=== PATIENT | female | born 1950 | race Hispanic/Latino ===

== ENCOUNTER 2017-04-25 10:15 | Outpatient (CLI) | payer MEDICARE, OTHER ==
--- NOTE | 2017-04-25 16:10 | PET ---
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 Exam requested for restaging. No chemo or radiatio n therapy has been administered. TECHNIQUE: PET scanning with CT attenuation correction was performed from the base of the brain through the pro ximal thighs following the intravenous administration of 10.4 mCi F18-FDG in the right antecubital f joshua. Imaging was performed after an uptake interval of 58 minutes. COMPARISON: PET CT dated 12/21/16. FINDINGS: There is continued hypermetabolic activity in the left upper lobe lung nodule with a current SUV of 11.2 (previously 9.1). No new hypermetabolic pulmonary nodules are seen in either lung. No evie hypermetabolism is noted in the neck, mediastinum, hilar regions, axilla, abdomen, pelvis, or inguinal regions. No hypermetabolic liver, adrenal, or skeletal lesions are seen. There is mild uptake in the right ribs/chest wall likely due to postop change of thoracostomy. There is physiologic activity in the GI and tracts, and the visualized portions of the brain. The CT scan used for attenuation correction demonstrates no evidence of pleural effusions or ascites . IMPRESSION: Solitary left upper lobe lung malignancy/metastatic disease. POS: [facility]
== END 2017-04-25 10:16 | disposition home or self-care (01) ==
LOC: PET 10:15
PROVIDERS: ATTEND Internal Medicine Hematology & Oncology
DX: C34.90 Malignant neoplasm of unspecified part of unspecified bronchus or lung (principal); C78.02 Secondary malignant neoplasm of left lung
CPT/HCPCS: 78815; A9552

== ENCOUNTER 2017-09-20 12:34 | Outpatient (CLI) | payer MEDICARE, OTHER ==
--- NOTE | 2017-09-20 14:12 | RAD ---
PA AND LATERAL CHEST: History: malignant neoplasm of left upper bronchus. FINDINGS: Comparison made with exam of 08-29-17. Changes of median sternotomy are again seen. The heart size is normal. The lungs are expanded with st able chronic changes. No lobar consolidation, pneumothoraces or pleural effusions are seen. Density i n the right upper lateral chest is again noted. There are degenerative changes in the spine. IMPRESSION: Stable exam. POS: [facility]
== END 2017-09-20 12:35 | disposition home or self-care (01) ==
LOC: RAD 12:34
PROVIDERS: ATTEND Thoracic Surgery (Cardiothoracic Vascular Surgery)
DX: C34.11 Malignant neoplasm of upper lobe, right bronchus or lung (principal); C34.12 Malignant neoplasm of upper lobe, left bronchus or lung
CPT/HCPCS: 71046

== ENCOUNTER 2017-10-09 07:22 | Outpatient (CLI) | payer MEDICARE, OTHER ==
--- NOTE | 2017-10-09 09:28 | CT ---
CT CHEST WITH IV CONTRAST: Date: 10/09/17 HISTORY: Lung cancer. Restaging. COMPARISON: 09/26/16 and 04/25/17. FINDINGS: Postoperative changes of the right hilum are now apparent with presumed partial resection of the righ t upper lobe. The previously dominant right upper lobe mass is no longer present. At the left lung ap ex, a new 0.7 cm nodule is localized to the superior segment lower lobe, which is markedly displaced superiorly due to prior surgery. The lobular nodule at the lateral aspect of the left upper lobe apex abuts the lateral pleura. It is now 1.2 x 1.0 cm diameter, where it was previously 1.3 x 1.3 cm. Lungs are otherwise hyperinflated with parenchymal scarring. There is calcification in the arterial s tructures. No enlarged lymph nodes. Calcification within the arterial structures. IMPRESSION: 1. Surgical resection right upper lobe mass. 2. New 7 mm nodule right apex (superior segment right lower lobe). 3. Stable left upper lobe mass. 4. Atherosclerosis. POS: [facility]
[2017-10-09] MEDS ORDERED: Iopamidol 370 76% 100 ML VIAL ONE (15:38)
== END 2017-10-09 07:23 | disposition home or self-care (01) ==
LOC: CT 07:22
PROVIDERS: ATTEND Radiology Radiation Oncology
DX: C34.12 Malignant neoplasm of upper lobe, left bronchus or lung (principal); C34.11 Malignant neoplasm of upper lobe, right bronchus or lung; I70.90 Unspecified atherosclerosis
CPT/HCPCS: 71260; 82565

== ENCOUNTER 2017-12-27 09:32 | Outpatient (CLI) | payer MEDICARE, OTHER ==
--- NOTE | 2017-12-28 13:32 | RAD ---
MODIFIED BARIUM SWALLOW BY THE SPEECH PATHOLOGIST: HISTORY: Dysphagia, oropharyngeal phase, R13.12. Gastroesophageal reflux disease without esophagitis, K21.9. COMPARISON: None. FINDINGS: Scan was performed by the speech pathologist. Radiologist is not present. Multiple consistencies of contrast were given by the speech pathologist. IMPRESSION: Fluoroscopy for the speech pathologist. Please see their report for details. FLUORO TIME: 21 seconds. POS: [facility]
== END 2017-12-27 09:33 | disposition home or self-care (01) ==
PROVIDERS: ATTEND Internal Medicine Gastroenterology
DX: R13.12 Dysphagia, oropharyngeal phase (principal); K21.9 Gastro-esophageal reflux disease without esophagitis
CPT/HCPCS: 74230; G8996-GN-CI; G8997-GN-CI; G8998-GN-CI

== ENCOUNTER 2018-01-17 07:37 | Outpatient (CLI) | payer MEDICARE, OTHER ==
--- NOTE | 2018-01-17 09:27 | CT ---
CONTRAST ENHANCED CT CHEST: History: Patient with history of lung cancer. C34.12, C34.11. Technique: Contrast enhanced CT of the chest is performed. Date: 01-17-18 Comparison: 10-09-17 FINDINGS: CT images demonstrate a spiculated lesion in the left upper lobe, image 12, unchanged in size or shap e since the previous exam. A second lesion is seen in the superior segment of the right lower lobe. T his is seen on image 9. The patient has had a previous upper lobectomy. Small nodular density also seen on image 35 in the right lower lobe. Additional tiny lung parenchymal nodular density also seen on image 39 in the left lower lobe. This left lower lobe lesion also is pr esent on the previous exam. No evidence of mediastinal, hilar, or axillary lymphadenopathy is seen. There is a hiatal hernia present. IMPRESSION: Three stable right lung lesions. There does appear to be a newly developed small approximately 3 mm n odular density on image 35 in the right lower lobe. This lesion is too small to characterize. POS: [facility]
== END 2018-01-17 07:38 | disposition home or self-care (01) ==
LOC: CT 07:37
PROVIDERS: ATTEND Radiology Radiation Oncology
DX: C34.12 Malignant neoplasm of upper lobe, left bronchus or lung (principal); C34.11 Malignant neoplasm of upper lobe, right bronchus or lung; Z90.2 Acquired absence of lung [part of]; Z92.3 Personal history of irradiation; R91.1 Solitary pulmonary nodule; J98.4 Other disorders of lung
CPT/HCPCS: 71260; 82565

== ENCOUNTER 2018-01-20 20:33 | Observation (INO) | payer MEDICARE, OTHER ==
[2018-01-20 21:39] LABS: CKMB 1.6 ng/mL (0-6.6); Troponin I Less than 0.010 ng/mL (< 0.028)
[2018-01-20] MEDS ORDERED: traMADol HCl 50 MG TAB PO PRN (22:39)
[2018-01-20] MEDS ORDERED: PROVENTIL INHALER 6.7 G (200 INHALATIONS) INH PRN (22:39)
[2018-01-20] MEDS ORDERED: Nitroglycerin 0.4 MG TAB (25 Tab Bottle) PO PRN (22:40)
[2018-01-21] MEDS: Ipratropium Bromide 2.5 ml Neb NEB SCH ×4 (00:13→17:58)
[2018-01-21 00:41] LABS: Troponin I Less than 0.010 ng/mL (< 0.028)
[2018-01-21 00:47] VITALS: BMI 24.2
[2018-01-21] MEDS ORDERED: cefTRIAXone\\ROCEPHIN 1 GM in Sodium Chloride 0.9% 100 ML IVPB SCH (01:00)
--- NOTE | 2018-01-21 02:30 | HP ---
PRIMARY CARE PHYSICIAN: Felipe Stanton D.O. CODE STATUS: FULL CODE. PICK UP TRUCK DRIVER: Dick Terry M.D. TIME OF EVALUATION: 10:30 PM CHIEF COMPLAINT: Chest pain. HISTORY OF PRESENT ILLNESS: This is a 67-year-old female patient with past medical history of coronary artery disease status post CABG x3 vessels. The patient came to the hospital after having a retrosternal, chest pain, no specific radiation, that was severe, was on and off, initially started yesterday , no clear triggers, no alleviating factors, REVIEW OF SYSTEMS: Constitutional: No fever, no chills, generalized weakness. Respiratory: No cough, no sputum production, no shortness of breath. Cardiovascular: Chest pain as mentioned in the HPI, no palpitations, no shortness of breath. Gastrointestinal: No nausea, no vomiting, no diarrhea, no abdominal pain. PATTERN ROOM ATTENDANT: No dizziness, headache or feeling lightheaded. Genitourinary: No burning on urination. Extremities: No leg swelling. All other systems reviewed were negative except for the findings mentioned above. PAST MEDICAL HISTORY: Lung cancer, coronary artery disease, hyperlipidemia, hypertension, pulmonary disease, COPD. PAST SURGICAL HISTORY: CABG x3, hysterectomy, right upper lung lobectomy. PSYCHIATRIC HISTORY: No previous psychiatric history. SOCIAL HISTORY: No alcohol, no drugs. Former tobacco user, quit smoking more than 10 years ago. FAMILY HISTORY: Reported as negative. ALLERGIES: No known drug allergies. REPORTED MEDICATIONS: Please see her medication reconciliation for details. PHYSICAL EXAMINATION: VITAL SIGNS: On presentation, blood pressure 147/79 with heart rate 61, respiratory rate was 20, temperature 98.4, pain 0/10, O2 saturation 97 on room air. GENERAL: The patient has general appearance, alert, oriented, not in any acute distress. HEENT: Eyes, normal conjunctivae. Moist oral mucosa, anicteric. NECK: No JVD. RESPIRATORY: Bilateral air entry. No rales, no wheezing. Symmetrical expansion. CARDIOVASCULAR: Normal rate and regular rhythm, no murmurs, no gallop, no edema. ABDOMEN: Soft, normal bowel sounds. MUSCULOSKELETAL: Baseline range of motion and strength. No tenderness. SKIN: Warm and intact. No pallor, no rash, no redness. NEUROLOGIC: Baseline sensorium. No evidence of any new focal weakness. Baseline speech. Cranial nerves seem to be intact. PSYCHIATRIC: The patient is in good mood. No anxiety, oriented, optimal judgment. LABORATORY DATA: Reviewed. The patient has D-dimer negative, troponin negative. Hematology: White count 9.4, hemoglobin 14, MCV 83, platelet count 174. Chemistry was reviewed, sodium 142, potassium 3.9, chloride 107, carbon dioxide 25, anion gap 14, BUN 12, creatinine 0.7, GFR 34, glucose 106. LFTs were normal. Beta natriuretic peptide 115. UA was done, it was positive with leukocyte 7-10. IMAGING: Chest x-ray was reviewed, did not show any acute evident pathology, will need to follow Cardiology official report, this was reviewed by myself. ASSESSMENT AND PLAN: 1. Chest pain, rule out acute coronary syndrome. The patient has a history of coronary artery bypass graft. EKG as discussed with the performing physician from ER was negative with no acute findings for acute ischemic events. The patient follows with Dr. Harrison Castaneda, she has requested to see Dr. Terry prior to any other testing at this point. We will trend troponins, we will place her on monitor. We will treat accordingly. 2. Urinary tract infection. The patient has positive white count, we will give antibiotics, we will send cultures. 3. History of hypertension, it is controlled, reconciled home medications, adjustment treatment as needed. 4. History of chronic obstructive pulmonary disease, this is chronic, stable, reconciled home medications. 5. Deep venous thrombosis prophylaxis. [facility]
[2018-01-21 03:29] LABS: Troponin I Less than 0.010 ng/mL (< 0.028)
[2018-01-21] MEDS ORDERED: ALPRAZolam 0.25 MG TAB PO SCH (09:00)
[2018-01-21] MEDS ORDERED: Lisinopril 10 MG TAB PO SCH (09:00)
[2018-01-21] MEDS ORDERED: SYMBICORT INH SCH (09:00)
[2018-01-21] MEDS ORDERED: Spiriva 18 MCG CAP (Box of 5 Caps) INH SCH (09:00)
[2018-01-21] MEDS ORDERED: Aspirin 325 MG TAB PO SCH (09:00)
[2018-01-21] MEDS: Mometasone/Formoterol 120 PUFF INHALER INH SCH ×2 (12:00→18:00)
--- NOTE | 2018-01-21 13:00 | CON ---
DATE OF CONSULTATION: 01/21/2018 REASON FOR CONSULTATION: Chest pain. PRIMARY FLUX CORE WELDER: Dr. Dick Terry. HISTORY OF PRESENT ILLNESS: Ms. Flores is a very pleasant 67-year-old woman with a previous history of CAD status post bypass surgery in 2012 who recently presented with chest pain. She states she has had multiple episodes over the last several days. They occur at rest. No nausea, vomiting or other associated symptoms present. It is not worse with deep breath or movement. They spontaneously reso lve. Her CK and troponins have been negative. Her EKG has also been negative. She is currently nicole st pain free and has been over the last 24 hours. PAST MEDICAL HISTORY: 1. Coronary angiography in 2012 with the following: LAD 60% stenosis, circumflex artery 80% stenosi s, right coronary artery 80% stenosis. 2. CABG x3. 3. Lung cancer. 4. COPD. 5. Pulmonary disease. 6. Hyperlipidemia. PAST SURGICAL HISTORY: Hysterectomy, right upper lobectomy. SOCIAL HISTORY: No current tobacco or alcohol use. Quit all tobacco products in 2011. CURRENT MEDICATIONS: None. FAMILY HISTORY: Negative for CAD. HOME MEDICATIONS: Include Spiriva, Zestril, Advair, Dexilant, Lipitor, aspirin and ProAir. REVIEW OF SYSTEMS: Ten-point review of systems is reviewed and as above, otherwise negative. PHYSICAL EXAMINATION: GENERAL: The patient is a pleasant female who is in no acute distress. The patient appears her stat ed age. VITAL SIGNS: Blood pressure 135/62, pulse 71, temperature 98.4. NEUROLOGIC: The patient is alert and oriented times 3 with no focal neurologic deficits. HEENT: Sclerae without icterus. Mouth has moist mucous membranes with normal pallor. NECK: No JVD. Carotid upstroke brisk. No bruits bilaterally. LUNGS: Clear to auscultation with unlabored respirations. BACK: No scoliosis or kyphosis. CARDIAC: Regular rate and rhythm with normal S1 and S2. No S3 or S4 noted. No significant rubs, mu rmurs, thrills, or gallops noted throughout the precordium. PMI is not displaced. There is no curly ternal heave. ABDOMEN: Soft, nontender, nondistended. No peritoneal signs present. No hepatosplenomegaly. No ab normal striae. EXTREMITIES: 2+ femoral and 2+ dorsalis pedis pulses. No cyanosis, clubbing, or edema. SKIN: No gross abnormalities. PERTINENT LABS: CK and troponin negative. D-dimer negative. IMPRESSION: 1. Chest pain. 2. Coronary artery disease. 3. Status post bypass surgery. RECOMMENDATIONS: Ms. Flores's symptoms could certainly suggest angina. The pain has occurred at res t. Her CK and troponin now are negative. Her EKG is nonspecific and is unchanged. Given the above, would recommend a noninvasive stress study to assess for any areas of ischemia. Further recommendat ions will be dictated by findings as above.
[2018-01-21] MEDS ORDERED: Regadenoson 0.4 MG/5 ML SYRINGE ONE (13:27)
[2018-01-21 15:21] VITALS: BP 152/70; TEMP 98.3
--- NOTE | 2018-01-21 16:32 | NM ---
NUCLEAR MEDICINE CARDIAC PERFUSION EXAMINATION WITH EJECTION FRACTION: HISTORY: 67-year-old female with chest pain. History of coronary artery disease status post CABG. TECHNIQUE: A single day nuclear medicine cardiac perfusion examination was performed. Rest images were obtained using 9 mCi of technetium-99m sestamibi. Stress images were obtained using 29.1 mCi of technetium-99m sestamibi and Lexiscan. FINDINGS: Tomographic images show no fixed or reversible perfusion defects. Gated images show normal wall motio n with an ejection fraction of greater than 70%. EDV: 37 mL LHR: 0.3 TID: 0.6 IMPRESSION: No evidence of ischemia. POS: [facility]
--- NOTE | 2018-01-22 06:13 | DIS ---
DATE OF ADMISSION: 01/20/2018 DATE OF DISCHARGE: 01/21/2018 DISCHARGE DIAGNOSES: 1. Chest pain, musculoskeletal, resolved. 2. Urinary tract infection with gram-negative rods. 3. Hypertension, stable. 4. Chronic obstructive pulmonary disease without exacerbation. 5. Hyperlipidemia. CONSULTATIONS: Dr. Childress with Cardiology Service. PERTINENT LABORATORY AND X-RAY FINDINGS: Basic metabolic profile within normal limits. Troponin I n egative x4. CBC within normal limits. Urine culture dated 01/21/2018 showed greater than 100,000 co lonies of gram negative rods, final identification pending. Portable chest x-ray dated 01/20/2018 sh owed no acute cardiopulmonary process. Cardiolite stress test dated 01/21/2018 showed no evidence of reversible or fixed ischemia with calculated ejection fraction of greater than 70%. HOSPITAL COURSE: The patient was observed on the telemetry unit after initially presenting with ches t pain in the context of known coronary artery disease. Serial troponins were negative x4, at which point the patient underwent Cardiolite stress testing at the recommendation of Cardiology Service. N o evidence of reversible or fixed ischemia was identified on the Cardiolite stress testing with calcu lated ejection fraction greater than 70%. Telemetry monitoring showed sinus mechanism without eviden ce of acute arrhythmia or dysrhythmia. The patient was noted with incidental findings of positive ur ine culture with greater than 100,000 colonies of gram negative rods. The patient received IV Roceph in x1 dose and will continue on Macrobid 100 mg b.i.d. to complete 5 days of antibiotic coverage. I have examined the patient at the time of discharge and discussed pertinent findings during the hospit al course as well as followup instructions. The patient verbalizes understanding and agreement and r maile for discharge on 01/21/2018. DISCHARGE MEDICATIONS: 1. ProAir HFA 2 puffs inhaled q.4 hours p.r.n. 2. Enteric coated aspirin 81 mg p.o. daily. 3. Lipitor 40 mg p.o. at bedtime. 4. Dexilant 60 mg p.o. at bedtime. 5. Advair Diskus 1 inhalation daily. 6. Zestril 10 mg p.o. at bedtime. 7. Macrobid 100 mg p.o. b.i.d. x4 days. 8. Spiriva HandiHaler 18 mcg 2 puffs inhaled daily. FOLLOWUP: The patient to follow up with her primary care provider, Dr. Jatinder Stanton within 7 days of discharge. CONDITION ON DISCHARGE: Stable. ACTIVITY: Ad-mary. DIET: Heart healthy. CODE STATUS: FULL. DISPOSITION: Home on 01/21/2018.
== END 2018-01-21 18:32 | disposition home or self-care (01) ==
LOC: ERS 20:33 → 2SW 22:00
PROVIDERS: ADMIT Hospitalist; ATTEND Hospitalist
DX: R07.89 Other chest pain (principal); N39.0 Urinary tract infection, site not specified; I10 Essential (primary) hypertension; J44.9 Chronic obstructive pulmonary disease, unspecified; E78.5 Hyperlipidemia, unspecified; I25.10 Atherosclerotic heart disease of native coronary artery without angina pectoris; Z79.899 Other long term (current) drug therapy
CPT/HCPCS: 78452; 82553; 84484 ×3; 85379; 87077; 87086; 87186; 93005; 93017; 94640 ×3; 94760 ×2; 96365; 99285; A9500; G0378; 36415; J0696; J2785; J7050; J7644

== ENCOUNTER 2018-07-04 08:08 | Outpatient (CLI) | payer MEDICARE, OTHER ==
--- NOTE | 2018-07-04 10:10 | CT ---
CT CHEST WITH IV CONTRAST: History: Right upper lobe lung cancer with lobectomy. Re-staging. Comparison: 01-17-18 FINDINGS: Lungs remain hyperinflated with scarring. The nodule at the right lung apex now measures up to 1.1 cm in craniocaudal length where it was previously 0.7 cm. The adjacent tiny nodules, the other scattere d small nodules, and the peripheral wedge shaped parenchymal opacity at the lateral aspect of the lef t lung apex are stable. No new masses are evident. No pleural fluid or mediastinal adenopathy. Promin ent calcification in the arterial structures. IMPRESSION: 1. Interval enlargement right apical nodule, measuring up to 1.1 cm on today's exam. 2. Other bilateral nodules are stable. No new masses. 3. Atherosclerosis. COPD. POS: [facility]
[2018-07-04] MEDS ORDERED: Iopamidol 370 76% 100 ML VIAL ONE (10:38)
== END 2018-07-04 08:09 | disposition home or self-care (01) ==
LOC: CT 08:08
PROVIDERS: ATTEND Radiology Radiation Oncology
DX: C34.12 Malignant neoplasm of upper lobe, left bronchus or lung (principal); R91.8 Other nonspecific abnormal finding of lung field; J44.9 Chronic obstructive pulmonary disease, unspecified; I70.90 Unspecified atherosclerosis
CPT/HCPCS: 71260

== ENCOUNTER 2018-07-12 08:12 | Outpatient (CLI) | payer MEDICARE, OTHER ==
--- NOTE | 2018-07-12 12:27 | PET ---
PET SCAN WITH CT ATTENUATION CORRECTION: HISTORY: Lung adenocarcinoma. COMPARISON: 04/25/17. CORRELATION: Chest CT dated 07/04/18, 01/17/18, and 10/09/17. TECHNIQUE: PET scanning with CT attenuation correction is performed from the base of the brain to the proximal t highs following the intravenous administration of 12.1 mCi F18-FDG. FINDINGS: HEAD/NECK: No abnormal FDG localization. CHEST: There is FDG avidity involving the newly developed right apical nodule with a maximum SUV of 3.1. The re is a smaller satellite nodule which is also new since the previous PET scan, but this nodule is be low the imaging threshold criteria for PET imaging. There is a third new nodular density in the poste rior slightly medial aspect of the right upper lobe which was not present on the prior PET scan. This nodule is also below the imaging threshold criteria for PET imaging. There is a stable linear opacity with a possible pleural based cavitation along the left upper lobe w hich is nonhypermetabolic and has a maximum SUV of 2.2. Additional nodule is noted just posterior to the right major fissure, involving the superior segment of the right lower lobe. This lesion is also too small to characterize and is not hypermetabolic. ABDOMEN/PELVIS: No abnormal FDG localization. OSSEOUS STRUCTURES: No abnormal FDG localization. IMPRESSION: 1. Multiple new nodules in the right upper lobe, as well as a new nodule in the superior segment of the right lower lobe. The majority of these nodules are too small to characterize by PET imaging. The largest nodule, in the right lung apex, is hypermetabolic. 2. Stable appearance of a focal opacity with a possible adjacent cavitation in the left upper lobe. This lesion is not hypermetabolic. POS: [facility]
== END 2018-07-12 08:13 | disposition home or self-care (01) ==
LOC: PET 08:12
PROVIDERS: ATTEND Radiology Radiation Oncology
DX: C34.11 Malignant neoplasm of upper lobe, right bronchus or lung (principal); C34.12 Malignant neoplasm of upper lobe, left bronchus or lung; R91.8 Other nonspecific abnormal finding of lung field
CPT/HCPCS: 78815; A9552

== ENCOUNTER 2018-09-10 12:47 | Outpatient (CLI) | payer MEDICARE, OTHER ==
--- NOTE | 2018-09-10 14:26 | RAD ---
TWO VIEWS CHEST: Date: 09-10-18 Provided Clinical History: Malignant neoplasm, bilateral upper lungs. Comparison: 03-19-18 FINDINGS: Cardiac and mediastinal silhouette is unchanged in appearance. Median sternotomy changes are again se en. There is elevation of the right hemidiaphragm which appears new with respect to the prior examina tion, which is mild. The appearance of a lung parenchyma is radiographically stable. There is no pleu ral fluid or pneumothorax apparent. Surgical clips are seen in the mediastinum. IMPRESSION: Mild elevation of the right hemidiaphragm, which is a new finding. POS: [facility]
== END 2018-09-10 12:48 | disposition home or self-care (01) ==
LOC: RAD 12:47
PROVIDERS: ATTEND Thoracic Surgery (Cardiothoracic Vascular Surgery)
DX: C34.11 Malignant neoplasm of upper lobe, right bronchus or lung (principal); C34.12 Malignant neoplasm of upper lobe, left bronchus or lung; J98.6 Disorders of diaphragm
CPT/HCPCS: 71046

== ENCOUNTER 2018-11-06 12:23 | Outpatient (CLI) | payer MEDICARE, OTHER ==
--- NOTE | 2018-11-06 15:14 | CT ---
CHEST CT WITH CONTRAST: Date: 11/06/18 COMPARISON: 07/04/18. 01/17/2018, 10/09/17. HISTORY: Lung nodule. TECHNIQUE: Postcontrast chest CT is performed in the axial plane. FINDINGS: No mediastinal mass, lymphadenopathy, or hematoma. Heart size is within normal limits. No pericardial effusion. The thoracic aorta and upper abdominal aorta do have atherosclerosis without evidence of a neurysm or dissection. There are coronary artery calcifications. Visualized upper solid organs are unremarkable. Trachea and central bronchi are patent. Emphysematous changes with areas of scarring in both lungs is noted. Stable bleb with associated abnormal soft tissue in the left upper lobe, lateral aspect. The abnormal soft tissue measures 1.0 cm and is unchanged since September 2017. There is a ground-glass opaci ty in the right lung apex which has increased in size since December 2017 but stable since June 2018. This lesion currently measures 1.3 x 1.0 cm. In December 2017 this lesion was 0.7 cm. Redemonstration of a focal irregularity involving the right lower lobe measuring 0.5 cm. Nonspecific irregularity invol ving the right lower lobe, not appreciated on the previous examination(axial image 17). Interval bett er demonstrateion of a nodule along the medial aspect of the right lower lobe measuring 0.6 cm (axial image 38). Redemonstration of a stable 4.0 mm nodule in the left lower lobe. There are no lytic or blastic lesions in the osseous structures. IMPRESSION: 1. Findings compatible with a right upper lobectomy. There are opacities in the superior aspect of t he right lower lobe. The right apical opacity is unchanged. Additional linear opacities are essential ly stable. There is better demonstration of a nodular along the medial aspect of the right lower lobe , posterior mediastinal in location. 2. Stable changes in the left upper lobe. POS: [facility]
[2018-11-06] MEDS ORDERED: ISOVUE-370 76%-LOCM 1 ML ONE (16:53)
[2018-11-07 08:38] LABS: Estimated GFR-MDRD - POC Greater than 90
== END 2018-11-06 12:24 | disposition home or self-care (01) ==
LOC: BICCT 12:23
PROVIDERS: ATTEND Internal Medicine Pulmonary Disease
DX: R91.1 Solitary pulmonary nodule (principal); R91.8 Other nonspecific abnormal finding of lung field
CPT/HCPCS: 71260; 82565

== ENCOUNTER 2019-05-15 08:11 | Outpatient (CLI) | payer MEDICARE, OTHER ==
[2019-05-15 08:52] LABS: Estimated GFR-MDRD - POC Greater than 90
--- NOTE | 2019-05-15 10:02 | CT ---
CT CHEST WITH IV CONTRAST: HISTORY: Right and left upper lobe lung cancer status post right upper lobectomy, status post radiation treatm ents. COMPARISON: 11/06/2018 FINDINGS: No mediastinal, hilar or axillary mass lymphadenopathy is seen. No pleural or pericardial effusions a re seen. The focal ground glass opacity in the right lung apex noted on the previous exam is not seen on the c urrent exam. The nodules at the anterior aspect of the right lower lobe are again seen, measuring 6 m m laterally and 10 and 12 mm medially. The 12 mm nodule previously measured 10 mm. The 1 cm peripheral nodule in the left upper lobe is stable. The 4 mm nodule in the left lower lobe i s also stable. There are degenerative changes in the spine. Upper abdominal tomograms are stable. IMPRESSION: Mixed response to therapy since 11/06/2018. POS: [facility]
== END 2019-05-15 08:12 | disposition home or self-care (01) ==
LOC: BICCT 08:11
PROVIDERS: ATTEND Radiology Radiation Oncology
DX: C34.11 Malignant neoplasm of upper lobe, right bronchus or lung (principal); Z92.3 Personal history of irradiation
CPT/HCPCS: 71260; 82565

== ENCOUNTER 2019-08-07 13:46 | Outpatient (CLI) | payer MEDICARE, OTHER ==
--- NOTE | 2019-08-07 14:01 | RAD ---
CHEST TWO VIEWS: HISTORY: Bilateral lung malignant neoplasm. COMPARISON: 09/10/2018 FINDINGS: Stable sternotomy wires. Normal cardiac silhouette. Pulmonary vessels and hilum are normal. Costophre dawson angles are clear. Stable postoperative changes in the right hemithorax. Persistent hyperinflation. Stable opacities in the left and right lung apex along with bilateral apical pleural thickening. Re-demonstration of a parenchymal opacity in the lateral left upper lobe, measuring 1.6 x 1.5 cm, corresponding to a CT performed on 05/15/2019. Stable diffuse bone mineralization. Atherosclerosis of the aorta. IMPRESSION: 1. Stable postoperative changes. 2. Re-demonstration of a left upper lobe parenchymal mass/opacity. Transcribed Date/Time: 08/07/2019 2:40 PM
== END 2019-08-07 13:47 | disposition home or self-care (01) ==
LOC: RAD 13:46
PROVIDERS: ATTEND Thoracic Surgery (Cardiothoracic Vascular Surgery)
DX: C34.11 Malignant neoplasm of upper lobe, right bronchus or lung (principal); C34.12 Malignant neoplasm of upper lobe, left bronchus or lung; Z98.890 Other specified postprocedural states; R91.8 Other nonspecific abnormal finding of lung field
CPT/HCPCS: 71046

== ENCOUNTER 2019-09-19 08:43 | Outpatient (CLI) | payer MEDICARE, OTHER ==
[2019-09-19 09:41] LABS: Estimated GFR-MDRD - POC Greater than 90
--- NOTE | 2019-09-19 11:26 | CT ---
CT CHEST WITH CONTRAST: INDICATION: Lung cancer. History of right upper lobectomy and radiation. History of CABG procedure. COMPARISON: Comparison is made to CT chest 05/15/2019 and 11/06/2018. FINDINGS: Chronic lung parenchymal changes are again noted with hyperexpansion, interstitial thickening, and fi brotic stranding. Right infrahilar soft tissue mass density has increased since the 05/05/2019 exam. The right suprahilar mass now measures 1.2 cm AP dimension x 1.4 cm width in the axial plane. In the coronary dimension, this mass density measures up to 3.4 cm. Previous coronal measurement was in th e 1.2 to 1.5 cm range. Superiorly, this mass extends to the fissure and abuts the mediastinum. It has a bilobed appearance more superiorly and at this location has a total axial width today measured at 2.8 cm. Previous similar measurement recorded at 2.3 cm. A small nodular opacity in the right upper lung adjacent to the fissure which appears to reside in th e superior segment of the right lower lobe has ill-defined borders and measures in the 7-8 mm range. This nodular [id number] appears stable in the coronal projection. In the left lung, there is a pleural-based mass in the peripheral left upper lobe with central cavita tion and stranding. This mass has increased in size. It measures 3.0 cm AP dimension in the axial p josé miguel today where a similar axial measurement was recorded at approximately 2.5 cm. Lungs otherwise appear clear. NO effusion or inflammatory infiltrate. Mediastinal otherwise unremar kable. Pulmonary arteries are opacified and there is no proximal pulmonary embolus. Thoracic aorta is unremarkable with mild atherosclerotic change. Images through the upper abdomen appear unremarkab le. IMPRESSION: 1. Right suprahilar mass has increased in size when compared to prior exam. 2. Pleural-based mass in the peripheral left upper lobe has also slightly increased in size. POS: [facility]
[2019-09-19] MEDS ORDERED: Iopamidol-370 76% 500 ML 1 ML ONE (14:39)
== END 2019-09-19 08:44 | disposition home or self-care (01) ==
LOC: BICCT 08:43
PROVIDERS: ATTEND Radiology Radiation Oncology
DX: C34.11 Malignant neoplasm of upper lobe, right bronchus or lung (principal); R91.8 Other nonspecific abnormal finding of lung field; Z92.3 Personal history of irradiation
CPT/HCPCS: 71260; 82565; Q9967

== ENCOUNTER 2019-09-24 09:35 | Outpatient (CLI) | payer MEDICARE, OTHER ==
--- NOTE | 2019-09-24 11:43 | PET ---
EXAM: PET/CT HISTORY: Lung cancer status post surgical resection and radiation therapy with enlarging pulmonary lesions see n on a recent CT evaluation TECHNIQUE: PET scanning with CT attenuation correction was performed from the base of the brain to the proximal thighs following the intravenous administration of 11.06 millicuries [id number]. COMPARISON: PET/CT dated July 12, 2018, CTA of the thorax dated 09/19/2019, 05/15/2019, 11/16/2018, 07/04/2008 01/17/2018. FINDINGS: Biodistribution:The biodistribution for the exam appears acceptable. Head and neck: There is appropriate background activity within the brain. No hypermetabolic lymphaden opathy or masses identified. Thorax: The lobulated mass that has increased in size along the right lower lobe partial pneumonectom y site (axial image 70) has increased in size from the prior PET/CT and measures 2.81 cm. There is increased hypermetabolic activity in this lesion with a peak activity of 4.28 and a mean activity of 4.16. The pleural-based, centrally cavitated pulmonary nodule has increased in size from the prior PET/CT now measuring 2.5 cm were previously measured 1.4 cm. The peak activity associated with this n odule is 1.96 with a mean activity 1.82. There is a small 6 mm pulmonary nodule seen within the superior right lower lobe that demonstrates no associated hypermetabolic activity. No new pulmonary n odule is demonstrated. There is scattered emphysema. Abdomen and pelvis: There is expected background activity within the GI and systems. No hypermetab olic mass, lymphadenopathy or ascites is present. Osseous structures and skin: No hypermetabolic skin or osseous lesion is identified. IMPRESSION: Abnormal PET/CT 1. The lobulated mass seen along the pneumonectomy site margin of the right lower lobe has increased in size and prominence with hypermetabolic activity suspicious for recurrent disease. 2. Pleural-based, centrally cavitated nodule in the left upper lobe demonstrates no associated hyperm etabolic activity. Findings may reflect exuberant scar involving a treated lesion. Continued close CT follow-up is recommended.
== END 2019-09-24 09:36 | disposition home or self-care (01) ==
LOC: PET 09:35
PROVIDERS: ATTEND Radiology Radiation Oncology
DX: C34.90 Malignant neoplasm of unspecified part of unspecified bronchus or lung (principal); R91.8 Other nonspecific abnormal finding of lung field; R91.1 Solitary pulmonary nodule
CPT/HCPCS: 78815; A9552

== ENCOUNTER 2019-12-05 10:34 | Outpatient (CLI) | payer OTHER ==
[~2019-12-05 10:34] MED LIST: Iopamidol-370 76% 500 ML 1 ML ONE
[2019-12-05 11:03] LABS: Estimated GFR-MDRD - POC Greater than 90
--- NOTE | 2019-12-05 12:48 | CT ---
CT CHEST WITH IV CONTRAST: INDICATION: Lung cancer. Post surgery and radiation. COMPARISON: Comparison is made to CT chest 09/19/2019. FINDINGS: The right suprahilar mass described previously does not appear significantly changed. Nodular compon ent in the right suprahilar region continues to measure approximately 1.2 cm AP dimension. Slightly more superior there is a bilobed appearance to this mass extending to the mediastinum. Total width i n the axial plane continues to measure approximately 2.8 cm at this location. Review of the lung corona again showed chronic parenchymal changes as described previously. Bilatera l apical pleural thickening appears stable. A pleural-based mass density in the lateral left apical region is again seen. This mass demonstrated a small central cavitation on the prior exam which is n ot definitely seen today. This mass appears slightly larger in the coronal plane measured at 2.0 cm today whereas it previously measured approximately 1.6 cm. The nodular opacity in the right upper lobe described previously is stable. No other interval change apparent. The pulmonary arteries are well opacities and there is no evidence of pulmonary embolus. Thoracic aorta shows no evidence of dissection or aneurysm. Images through the upper abdomen unrema rkable. The thoracic vertebrae maintain height and alignment with degenerative changes again noted. IMPRESSION: 1. The right suprahilar mass does not appear significantly changed. 2. Pleural-based mass laterally in the left upper lobe may be minimally larger, although some of thi s may be technical. 3. Chronic lung changes and other nodular opacities appear stable. POS: AGW
== END 2019-12-05 10:35 | disposition home or self-care (01) ==
LOC: BICCT 10:34
PROVIDERS: ATTEND Internal Medicine Hematology & Oncology
DX: C34.81 Malignant neoplasm of overlapping sites of right bronchus and lung (principal); R91.8 Other nonspecific abnormal finding of lung field
CPT/HCPCS: 71260; 82565; Q9967

== ENCOUNTER 2020-01-02 08:35 | Day surgery (SDC) | payer MEDICARE, OTHER ==
[2020-01-01 13:15] VITALS: BMI 20.6
[~2020-01-02 08:35] MED LIST changes: -Iopamidol-370 76% 500 ML 1 ML ONE; +Prevnar 13-Val Conj/PF 0.5 ML SYRINGE IM ONE
[2020-01-02 08:53] LABS: #Basophils 0.1 thou/uL (0.0-0.2); #Eosinphils 0.6 thou/uL (0.0-0.7); #Lymphocytes 1.7 thou/uL (1.20-3.40); #Monocytes 0.8 thou/uL (0.11-0.59); #Neutrophils 7.1 thou/uL (1.40-6.50); %Basophils 0.7 % (0.0-1.0); %Eosinophils 6.1 % (0.0-10.0); %Lymphocytes 16.6 % (21.0-51.0); %Monocytes 7.6 % (0.0-10.0); Hemoglobin 14.6 g/dL (12.0-16.0); Mean Corpuscular HGB CONC 32.9 g/dL (32.0-36.0); Mean Corpuscular Hemoglobin 31.3 pg (27.0-31.0); Mean Corpuscular Volume 95.2 fL (78.0-98.0); Mean Platelet Volume 8.3 fL (7.4-10.4); Platelet Count 214 thou/uL (130-400); RBC Distribution Width 13.1 % (11.5-14.5); Red Blood Cell (RBC) Count 4.67 mill/uL (4.20-5.40); White Blood Cell (WBC) Count 10.3 thou/uL (4.8-10.8)
[2020-01-02 09:00] LABS: INR-International Normal Ratio 0.9; PTT 28.4 sec (22.9-36.1); Prothrombin Time 12.3 sec (12.0-14.7)
[2020-01-02] MEDS ORDERED: Fentanyl 100 MCG/2 ML VIAL ONE (11:06)
[2020-01-02] MEDS ORDERED: Lidocaine 1% PF 5 ML VIAL ONE (11:06)
[2020-01-02] MEDS ORDERED: Midazolam HCl 2 mg/2 ml Vial ONE (11:06)
[2020-01-02] MEDS ORDERED: Sodium Bicarbonate 2.5 MEQ/5 ML VIAL ONE (11:06)
[2020-01-02] MEDS ORDERED: Benzonatate 100 MG CAP ONE (11:48)
--- NOTE | 2020-01-02 13:05 | RAD ---
EXAM: XR Chest Insp/Exp PROVIDED CLINICAL HISTORY: Post biopsy pleural-based left upper lobe mass. COMPARISON: Chest x-ray on 08/07/2019. FINDINGS: Patient is rotated to the right. Postoperative changes right hilar region are present with multiple s urgical clips and radiopaque suture material present. Median sternotomy wires are seen. Minimal chronic interstitial lung changes are seen in the upper lung zones bilaterally with persistent pleura l and parenchymal scarring right lung apex. The irregular masslike density in the left upper lobe shown to be pleural based on prior CT exam is present. A very tiny left apical pneumothorax is seen. No pleural effusion is identified. No other interval change. IMPRESSION: 1. Tiny left apical pneumothorax. 2. Chronic lung changes as well as postoperative changes right hemithorax. 3. Pleural-based mass lateral left upper lobe.
[2020-01-02 13:30] VITALS: BP 108/62; TEMP 98.3
--- NOTE | 2020-01-02 14:31 | RAD ---
Chest 2 views inspiratory expiratory HISTORY: Lung mass. Biopsy. Pneumothorax. COMPARISON: Earlier exam on the same date. FINDINGS: Small amount of pleural gas at the superior and lateral aspect of the left hemithorax is si milar in appearance to the prior study. Left lung mass, postoperative changes mediastinum, and old right rib fractures are again demonstrated. IMPRESSION : Stable radiographic appearance of the small left pneumothorax. No new abnormalities. Patient is doing well clinically in the radiology holding area and will be discharged.
--- NOTE | 2020-01-02 16:49 | CT ---
Left lung mass biopsy CT-guided Conscious sedation: At least 40 minutes spent with the patient for conscious sedation. HISTORY: Left lung mass. FINDINGS: After explaining the procedure and answering all questions, limited CT imaging of the chest was performed. Repositioning of the arm was attempted to provide access to the left upper lobe lung mass. With the patient supine, a safe percutaneous approach was not found. Patient was placed in the right lateral decubitus position for access to the mass anterior to the scapula. Sterile technique, buffered local anesthesia, CT guidance, conscious sedation, and a left lateral anderson rivera were used to carefully advance the tip of a 19-gauge trocar needle to the pleural-based mass in the left upper lobe. Position was confirmed with CT. A total of 3 20-gauge specimens were obtained and submitted to pathology for evaluation. Needle was r emoved. Small amount of pleural gas present on the final images. Patient tolerated the procedure well and was returned to the holding area in good condition. She was monitored over the course of 2 h ours, with a follow-up chest radiograph showing the small pneumothorax to remain stable. Patient was discharged in good condition. IMPRESSION : Technically successful CT-guided left lung mass biopsy. Pathology is pending.
--- NOTE | 2020-01-03 14:19 | CT ---
Left lung mass biopsy CT-guided Conscious sedation: At least 40 minutes spent with the patient for conscious sedation. HISTORY: Left lung mass. FINDINGS: After explaining the procedure and answering all questions, limited CT imaging of the chest was performed. Repositioning of the arm was attempted to provide access to the left upper lobe lung mass. With the patient supine, a safe percutaneous approach was not found. Patient was placed in the right lateral decubitus position for access to the mass anterior to the scapula. Sterile technique, buffered local anesthesia, CT guidance, conscious sedation, and a left lateral anderson rivera were used to carefully advance the tip of a 19-gauge trocar needle to the pleural-based mass in the left upper lobe. Position was confirmed with CT. A total of 3 20-gauge specimens were obtained and submitted to pathology for evaluation. Needle was r emoved. Small amount of pleural gas present on the final images. Patient tolerated the procedure well and was returned to the holding area in good condition. She was monitored over the course of 2 h ours, with a follow-up chest radiograph showing the small pneumothorax to remain stable. Patient was discharged in good condition. IMPRESSION : Technically successful CT-guided left lung mass biopsy. Pathology is pending. Transcribed Date/Time: 01/03/2020 2:19 PM
== END 2020-01-02 14:50 | disposition home or self-care (01) ==
LOC: CT 08:35
PROVIDERS: ATTEND Internal Medicine Hematology & Oncology
PROC: 0BDL4ZX Extraction of Left Lung, Percutaneous Endoscopic Approach, Diagnostic (ICD-10-PCS; principal; 2020-01-02)
DX: R91.8 Other nonspecific abnormal finding of lung field (principal); E78.5 Hyperlipidemia, unspecified; I25.10 Atherosclerotic heart disease of native coronary artery without angina pectoris; J44.9 Chronic obstructive pulmonary disease, unspecified; G25.81 Restless legs syndrome; Z85.118 Personal history of other malignant neoplasm of bronchus and lung; Z87.891 Personal history of nicotine dependence; Z92.3 Personal history of irradiation; Z79.51 Long term (current) use of inhaled steroids; Z79.82 Long term (current) use of aspirin; Z79.899 Other long term (current) drug therapy; Z91.030 Bee allergy status; Z90.2 Acquired absence of lung [part of]; Z95.1 Presence of aortocoronary bypass graft
CPT/HCPCS: 32405; 36415; 71045; 77012; 85025; 85610; 85730; 88305; 88312; 88313; J2001; J2250; J3010

== ENCOUNTER 2020-01-24 09:57 | Outpatient (CLI) | payer MEDICARE, OTHER ==
--- NOTE | 2020-01-24 16:45 | PET ---
PET CT: 01/24/20 HISTORY: 69-year-old female with recurrent adenocarcinoma of the right lung. Biopsy proven recurrence. Exam re quested for restaging. TECHNIQUE: PET scan used for CT attenuation correction was performed following the intravenous administration of 10.5 millicuries [id number] in the right antecubital fossa. COMPARISON: 09/24/19. FINDINGS: There is continued hypermetabolic activity in the right suprahilar mass with an SUV of 5.6 (previousl y 4.3). The remainder of the lung nodules demonstrate no abnormal FDG localization. No new hypermetab olic lung lesions are seen. No evie hypermetabolism noted in the neck, chest, axillae, abdomen or pelvis. No hypermetabolic live r, adrenal or skeletal lesions are seen. There is physiologic activity in the GI and tracts, heart and visualized portions of the brain. The CT scan used for attenuation correct demonstrates no evidence of pleural effusions or ascites. IMPRESSION: Findings are consistent with a right suprahilar malignancy without evidence of metastatic disease. POS: PARTH
== END 2020-01-24 09:58 | disposition home or self-care (01) ==
LOC: PET 09:57
PROVIDERS: ATTEND Radiology Radiation Oncology
DX: C34.91 Malignant neoplasm of unspecified part of right bronchus or lung (principal)
CPT/HCPCS: 78815; A9552

== ENCOUNTER 2020-04-01 11:06 | Outpatient (CLI) | payer MEDICARE, OTHER ==
--- NOTE | 2020-04-01 12:00 | RAD ---
CHEST 2 VIEWS: Date: 04/01/2020 HISTORY: Malignant neoplasm of upper lobe right bronchus. COMPARISON: 03/19/2020. FINDINGS: Stable right apical pleural thickening and upper right-sided volume loss with some elevation of the r ight upper hilar region. Stable linear parenchymal changes in the left upper lobe with pleural based mass in the lateral left apex region. Heart size is normal. Minimal hyperinflation. IMPRESSION: Biapical pleural and parenchymal changes which appear stable. Increased AP dimension of the chest, ev idence for some hyperinflation, with some chronic appearing linear and interstitial changes without e vidence for significant new process. POS: RRE
== END 2020-04-01 11:07 | disposition home or self-care (01) ==
LOC: BICRAD 11:06
PROVIDERS: ATTEND Thoracic Surgery (Cardiothoracic Vascular Surgery)
DX: C34.11 Malignant neoplasm of upper lobe, right bronchus or lung (principal); R91.8 Other nonspecific abnormal finding of lung field
CPT/HCPCS: 71046

== ENCOUNTER 2020-05-01 09:16 | Outpatient (CLI) | payer MEDICARE, OTHER ==
[2020-05-01 10:03] LABS: Estimated GFR-MDRD - POC Greater than 90
--- NOTE | 2020-05-01 10:43 | CT ---
Exam: Chest CT with contrast HISTORY: Lung cancer. Previous surgery in relation therapy. Right upper lobectomy and radiation. Incr easing shortness of breath. COMPARISON: 12/05/2019 FINDINGS: Lower neck and mediastinum: No masses or lymphadenopathy Mediastinum: No mass, lymphadenopathy or hematoma Heart: No significant pericardial fluid. No cardiomegaly. There are coronary artery calcifications Subdiaphragmatic structures: No abnormal enhancement of the solid organs Trachea and central bronchi: Patent Findings compatible with right upper lobectomy. Stable posttreatment change along the medial aspect o f the right upper hemithorax. Stable groundglass opacity adjacent to the right major fissure. Stable 0.8 cm nodule in the medial superior segment right lower lobe. Previously noted increased soft tissue density in the right suprahilar region has decreased in size. Currently, this abnormal soft tissue density measures 2.2 x 0.8 cm, previously measuring 3.3 x 1 cm. In the right lung, there is no new suspicious masses, consolidation or nodule. Minimal atelectasis and/or scarring in the lower lobe and middle lobe Stable minimal emphysematous change in the left upper lobe. Redemonstration of a pleural-based spicul ated mass in the left upper lobe. Currently, the mass measures 2.5 x 2.2 cm. Peripherally, this mass measured 3.1 x 1.7 cm. No new suspicious masses or nodules in the left upper lobe or left lower lobe. There is a stable solid nodule in the left lower lobe, measuring 0.6 cm. Osseous structures: No lytic or blastic lesions No pleural effusion or pneumothorax IMPRESSION: 1. Stable postsurgical changes involving the right lung. Interval decrease in size of a right suprahi lar mass. 2. Redemonstration of a pleural-based likely due to mass in the left upper lobe. 3. Stable solid nodule in the left lower lobe and medial superior segment of the right lower lobe..
== END 2020-05-01 09:17 | disposition home or self-care (01) ==
LOC: BICCT 09:16
PROVIDERS: ATTEND Family Medicine
DX: C34.11 Malignant neoplasm of upper lobe, right bronchus or lung (principal); J98.4 Other disorders of lung; R91.1 Solitary pulmonary nodule; Z98.890 Other specified postprocedural states
CPT/HCPCS: 71260; 82565

== ENCOUNTER 2020-10-29 09:22 | Observation (INO) | payer MEDICARE, OTHER ==
[2020-10-29] MEDS ORDERED: Albuterol 200 PUFF (6.7GM INHALER) ONE (09:50)
[2020-10-29 10:00] LABS: #Eosinphils 0.8 thou/uL (0.0-0.7); #Lymphocytes 1.3 thou/uL (1.20-3.40); #Monocytes 0.7 thou/uL (0.11-0.59); #Neutrophils 7.2 thou/uL (1.40-6.50); %Basophils 0.3 % (0.0-1.0); %Eosinophils 8.2 % (0.0-10.0); %Lymphocytes 12.8 % (21.0-51.0); %Monocytes 6.9 % (0.0-10.0); %Neutrophils 71.9 % (42.0-75.0); Hemoglobin 14.6 g/dL (12.0-16.0); Mean Corpuscular HGB CONC 31.2 g/dL (32.0-36.0); Mean Corpuscular Hemoglobin 30.2 pg (27.0-31.0); Mean Corpuscular Volume 96.7 fL (78.0-98.0); Mean Platelet Volume 8.1 fL (7.4-10.4); Platelet Count 209 thou/uL (130-400); Red Blood Cell (RBC) Count 4.84 mill/uL (4.20-5.40)
[2020-10-29 10:22] LABS: ALT (SGPT) 14 U/L (8-55); AST (SGOT) 17 U/L (5-34); Albumin 4.9 g/dL (3.4-4.8); Alkaline Phosphatase 212 U/L (40-110); Anion Gap 9 mmol/L (10-20); BUN (Urea Nitrogen) 6 mg/dL (9.8-20.1); Bilirubin, Total 0.9 mg/dL (0.2-1.2); Calc. Creatinine Clearance 0 mL/min (70-130); Carbon Dioxide 30 mmol/L (23-31); Chloride 104 mmol/L (98-107); Globulin 3.1 g/dL (2.4-3.5); Glucose 85 mg/dL (80-115); Potassium 4.4 mmol/L (3.5-5.1); Sodium 139 mmol/L (136-145)
[2020-10-29] MEDS ORDERED: cefTRIAXone\\ROCEPHIN 2 GM VIAL ONE (10:25)
[2020-10-29] MEDS ORDERED: predniSONE 20 MG TAB ONE (11:09)
[2020-10-29] MEDS ORDERED: Magnesium 2 GM/50 ML BAG (IN WATER) ONE (11:09)
[2020-10-29] MEDS ORDERED: Azithromycin 500 MG VIAL ONE (11:09)
[2020-10-29] MEDS ORDERED: Ondansetron PF 4 MG/2 ML Vial IVP PRN (12:07)
[2020-10-29] MEDS ORDERED: Ondansetron ODT 4 MG TAB PO PRN (12:07)
[2020-10-29] MEDS ORDERED: Acetaminophen 325 MG TAB PO PRN (12:07)
[2020-10-29] MEDS ORDERED: Albuterol Sulfate 2.5 mg/3 ml Neb NEB PRN (12:17)
[2020-10-29] MEDS ORDERED: Iopamidol 370 76% 100 ML VIAL ONE (13:52)
[2020-10-29 14:48] VITALS: BMI 23.3
[2020-10-29] MEDS ORDERED: Lisinopril 10 MG TAB PO SCH (21:00)
[2020-10-29] MEDS ORDERED: Azithromycin 250 MG TAB PO SCH (21:00)
[2020-10-30 06:27] LABS: #Basophils 0.1 thou/uL (0.0-0.2); #Eosinphils 0.3 thou/uL (0.0-0.7); #Lymphocytes 1.7 thou/uL (1.20-3.40); #Monocytes 1.2 thou/uL (0.11-0.59); #Neutrophils 8.2 thou/uL (1.40-6.50); %Basophils 0.7 % (0.0-1.0); %Eosinophils 2.6 % (0.0-10.0); %Lymphocytes 14.5 % (21.0-51.0); %Monocytes 10.6 % (0.0-10.0); %Neutrophils 71.5 % (42.0-75.0); Hemoglobin 12.6 g/dL (12.0-16.0); Mean Corpuscular HGB CONC 32.4 g/dL (32.0-36.0); Mean Corpuscular Hemoglobin 31.3 pg (27.0-31.0); Mean Corpuscular Volume 96.8 fL (78.0-98.0); Mean Platelet Volume 7.9 fL (7.4-10.4); Platelet Count 204 thou/uL (130-400); Red Blood Cell (RBC) Count 4.03 mill/uL (4.20-5.40); White Blood Cell (WBC) Count 11.5 thou/uL (4.8-10.8)
[2020-10-30 06:43] LABS: Anion Gap 9 mmol/L (10-20); BUN (Urea Nitrogen) 7 mg/dL (9.8-20.1); Calc. Creatinine Clearance 74 mL/min (70-130); Calcium 9.8 mg/dL (7.8-10.44); Carbon Dioxide 28 mmol/L (23-31); Chloride 108 mmol/L (98-107); Glucose 94 mg/dL (80-115); Potassium 4.1 mmol/L (3.5-5.1); Sodium 141 mmol/L (136-145)
[2020-10-30] MEDS ORDERED: Enoxaparin Sodium 40 MG/0.4 ML SYRINGE SC SCH (09:00)
[2020-10-30] MEDS ORDERED: Azithromycin 250 MG TAB PO SCH (09:00)
[2020-10-30] MEDS ORDERED: predniSONE 20 MG TAB PO SCH (09:00)
[2020-10-30 11:54] VITALS: BP 129/60; TEMP 97.6
== END 2020-10-30 12:57 | disposition home or self-care (01) ==
LOC: ERS 09:22 → ONC 14:26
PROVIDERS: ADMIT Family Medicine; ATTEND Family Medicine
DX: J44.1 Chronic obstructive pulmonary disease with (acute) exacerbation (principal); J96.01 Acute respiratory failure with hypoxia; C34.91 Malignant neoplasm of unspecified part of right bronchus or lung; I25.10 Atherosclerotic heart disease of native coronary artery without angina pectoris; I10 Essential (primary) hypertension; E78.5 Hyperlipidemia, unspecified; R91.8 Other nonspecific abnormal finding of lung field; Z86.16 Personal history of COVID-19; Z87.891 Personal history of nicotine dependence; Z79.82 Long term (current) use of aspirin; Z79.899 Other long term (current) drug therapy; Z91.030 Bee allergy status; Z95.1 Presence of aortocoronary bypass graft; Z99.81 Dependence on supplemental oxygen
CPT/HCPCS: 36415; 71045; 71275; 80048; 80053; 83880; 84145; 84484; 85025; 85379; 87633; 93005; 94640; 94664; 96365; 96366; 96367; 96372; G0378; J0456; J0696; J1650; J3475; J7512; J7620; Q9967

== ENCOUNTER 2020-11-16 16:22 | Observation (INO) | payer MEDICARE, OTHER ==
[~2020-11-16 16:22] MED LIST changes: +Iopamidol-370 76% 500 ML 1 ML ONE; -Prevnar 13-Val Conj/PF 0.5 ML SYRINGE IM ONE
[2020-11-16 17:07] LABS: #Basophils 0.2 thou/uL (0.0-0.2); #Eosinphils 0.5 thou/uL (0.0-0.7); #Lymphocytes 1.4 thou/uL (1.20-3.40); #Monocytes 0.9 thou/uL (0.11-0.59); %Basophils 1.2 % (0.0-1.0); %Eosinophils 3.9 % (0.0-10.0); %Lymphocytes 9.9 % (21.0-51.0); %Monocytes 6.7 % (0.0-10.0); %Neutrophils 78.3 % (42.0-75.0); Hemoglobin 13.8 g/dL (12.0-16.0); Mean Corpuscular HGB CONC 31.4 g/dL (32.0-36.0); Mean Corpuscular Hemoglobin 30.7 pg (27.0-31.0); Mean Corpuscular Volume 97.8 fL (78.0-98.0); Mean Platelet Volume 7.5 fL (7.4-10.4); Platelet Count 208 thou/uL (130-400); RBC Distribution Width 13.3 % (11.5-14.5); Red Blood Cell (RBC) Count 4.49 mill/uL (4.20-5.40)
[2020-11-16] MEDS ORDERED: Morphine 4 MG/ML VIAL ONE (17:07)
[2020-11-16 17:30] LABS: ALT (SGPT) 23 U/L (8-55); AST (SGOT) 17 U/L (5-34); Albumin 4.1 g/dL (3.4-4.8); Alkaline Phosphatase 147 U/L (40-110); Anion Gap 11 mmol/L (10-20); BUN (Urea Nitrogen) 5 mg/dL (9.8-20.1); Bilirubin, Total 0.7 mg/dL (0.2-1.2); Calc. Creatinine Clearance 0 mL/min (70-130); Carbon Dioxide 26 mmol/L (23-31); Chloride 105 mmol/L (98-107); Globulin 2.9 g/dL (2.4-3.5); Glucose 91 mg/dL (80-115); Lipase 12 U/L (8-78); Potassium 4.5 mmol/L (3.5-5.1); Sodium 137 mmol/L (136-145)
[2020-11-16] MEDS ORDERED: Acetaminophen 325 MG TAB PO PRN (19:25)
[2020-11-16] MEDS ORDERED: Nitroglycerin 0.4 MG TAB (25 Tab Bottle) SL PRN (19:36)
[2020-11-16] MEDS ORDERED: Albuterol Sulfate 2.5 mg/3 ml Neb NEB PRN (19:59)
[2020-11-16 20:34] LABS: Troponin I Less than 0.010 ng/mL (< 0.028)
[2020-11-16] MEDS ORDERED: Atorvastatin Calcium 40 MG TAB PO SCH (21:00)
[2020-11-16] MEDS ORDERED: Lisinopril 5 MG TAB PO SCH (21:00)
[2020-11-16 21:26] VITALS: BMI 23.0
[2020-11-16 23:21] LABS: Troponin I Less than 0.010 ng/mL (< 0.028)
[2020-11-17 03:58] VITALS: BP 120/64; TEMP 97.6
[2020-11-17 04:30] LABS: #Basophils 0.2 thou/uL (0.0-0.2); #Eosinphils 0.7 thou/uL (0.0-0.7); #Lymphocytes 1.5 thou/uL (1.20-3.40); #Monocytes 1.2 thou/uL (0.11-0.59); #Neutrophils 8.8 thou/uL (1.40-6.50); %Basophils 1.6 % (0.0-1.0); %Eosinophils 5.8 % (0.0-10.0); %Lymphocytes 12.4 % (21.0-51.0); %Monocytes 9.4 % (0.0-10.0); %Neutrophils 70.8 % (42.0-75.0); Mean Corpuscular HGB CONC 32.4 g/dL (32.0-36.0); Mean Corpuscular Hemoglobin 31.8 pg (27.0-31.0); Mean Corpuscular Volume 97.9 fL (78.0-98.0); Mean Platelet Volume 7.5 fL (7.4-10.4); Platelet Count 193 thou/uL (130-400); RBC Distribution Width 13.3 % (11.5-14.5); White Blood Cell (WBC) Count 12.4 thou/uL (4.8-10.8)
[2020-11-17 04:51] LABS: Anion Gap 8 mmol/L (10-20); BUN (Urea Nitrogen) 7 mg/dL (9.8-20.1); Calc. Creatinine Clearance 70 mL/min (70-130); Calcium 10.2 mg/dL (7.8-10.44); Carbon Dioxide 28 mmol/L (23-31); Cardiac Risk 2.6 (Less than 4.5); Chloride 104 mmol/L (98-107); Cholesterol 116 mg/dl (< 200 Desired); Glucose 99 mg/dL (80-115); HDL Cholesterol 44 mg/dL (>60 Neg Risk); LDL Cholesterol, Calculated 58 mg/dL; Potassium 4.1 mmol/L (3.5-5.1); Sodium 136 mmol/L (136-145); Triglycerides 71 mg/dL (Less than 150)
[2020-11-17] MEDS: Ipratropium Bromide 2.5 ml Neb NEB SCH ×2 (06:16→06:24)
[2020-11-17] MEDS ORDERED: Mometasone 100 MCG/Formoterol 5 MCG 120 PUFF INHALER INH SCH (06:30)
[2020-11-17 07:02] LABS: SARS-CoV-2 PCR by NAA Not Detected (NotDetected)
[2020-11-17] MEDS ORDERED: Aspirin 81 mg Enteric Coated Tablet PO SCH (09:00)
[2020-11-17] MEDS ORDERED: Enoxaparin Sodium 40 MG/0.4 ML SYRINGE SC SCH (09:00)
[2020-11-17] MEDS ORDERED: Regadenoson 0.4 MG/5 ML SYRINGE ONE (12:39)
== END 2020-11-17 12:46 | disposition home or self-care (01) ==
LOC: ERS 16:22 → ERHOLD 19:09
PROVIDERS: ADMIT Family Medicine; ATTEND Family Medicine
DX: R07.89 Other chest pain (principal); I25.10 Atherosclerotic heart disease of native coronary artery without angina pectoris; E83.52 Hypercalcemia; I10 Essential (primary) hypertension; J44.9 Chronic obstructive pulmonary disease, unspecified; E78.5 Hyperlipidemia, unspecified; K21.9 Gastro-esophageal reflux disease without esophagitis; Z85.118 Personal history of other malignant neoplasm of bronchus and lung; Z87.891 Personal history of nicotine dependence; Z79.82 Long term (current) use of aspirin; Z79.899 Other long term (current) drug therapy; Z91.030 Bee allergy status; Z90.2 Acquired absence of lung [part of]; Z95.1 Presence of aortocoronary bypass graft; Z20.822 Contact with and (suspected) exposure to COVID-19
CPT/HCPCS: 71045; 71275; 78452; 80048; 80053; 80061; 83690; 84484 ×2; 85025 ×2; 85379; 93005; 93017; 94640 ×2; A9500; U0003; U0005; 36415; 87635; 96372; 96374; G0378; J1650; J2270; J2785; Q9967

== ENCOUNTER 2021-02-27 14:42 | Inpatient (IN) | payer MEDICARE, OTHER ==
[2021-02-27 15:20] LABS: #Basophils 0.1 thou/uL (0.0-0.2); #Eosinphils 0.1 thou/uL (0.0-0.7); #Lymphocytes 0.5 thou/uL (1.20-3.40); #Monocytes 0.3 thou/uL (0.11-0.59); #Neutrophils 12.7 thou/uL (1.40-6.50); %Basophils 0.8 % (0.0-1.0); %Eosinophils 0.6 % (0.0-10.0); %Lymphocytes 3.8 % (21.0-51.0); %Neutrophils 92.8 % (42.0-75.0); Mean Corpuscular HGB CONC 32.3 g/dL (32.0-36.0); Mean Corpuscular Hemoglobin 31.5 pg (27.0-31.0); Mean Corpuscular Volume 97.5 fL (78.0-98.0); Mean Platelet Volume 7.9 fL (7.4-10.4); Platelet Count 210 thou/uL (130-400); RBC Distribution Width 12.9 % (11.5-14.5); Red Blood Cell (RBC) Count 4.45 mill/uL (4.20-5.40); White Blood Cell (WBC) Count 13.7 thou/uL (4.8-10.8)
[2021-02-27 15:40] LABS: ALT (SGPT) 13 U/L (8-55); AST (SGOT) 15 U/L (5-34); Albumin 4.4 g/dL (3.4-4.8); Alkaline Phosphatase 149 U/L (40-110); Anion Gap 10 mmol/L (10-20); BUN (Urea Nitrogen) 11 mg/dL (9.8-20.1); Bilirubin, Total 0.4 mg/dL (0.2-1.2); Calc. Creatinine Clearance 0 mL/min (70-130); Calcium 10.9 mg/dL (7.8-10.44); Carbon Dioxide 31 mmol/L (23-31); Chloride 102 mmol/L (98-107); Globulin 2.8 g/dL (2.4-3.5); Glucose 123 mg/dL (80-115); Lipase 13 U/L (8-78); Potassium 4.2 mmol/L (3.5-5.1); Protein, Total 7.2 g/dL (5.8-8.1); Sodium 139 mmol/L (136-145)
[2021-02-27] MEDS ORDERED: methylPREDNISolone Sod Succ 40 MG VIAL ONE (16:04)
[2021-02-27] MEDS ORDERED: Magnesium 2 GM/50 ML BAG (IN WATER) ONE (16:04)
[2021-02-27 18:36] LABS: SARS-CoV-2 NAA Rapid Test Not Detected (NotDetected)
[2021-02-27] MEDS ORDERED: Senokot S 8.6-50 MG TAB PO PRN (18:42)
[2021-02-27] MEDS ORDERED: Acetaminophen 325 MG TAB PO PRN (18:42)
[2021-02-27] MEDS ORDERED: Ondansetron ODT 4 MG TAB PO PRN (18:42)
[2021-02-27] MEDS ORDERED: Albuterol Sulfate 2.5 mg/3 ml Neb NEB PRN ×2 (18:46→23:14)
[2021-02-27] MEDS ORDERED: hydrALAZINE 20 MG/ML VIAL SLOW IVP PRN (18:57)
[2021-02-27 19:28] LABS: Troponin I Less than 0.010 ng/mL (< 0.028)
[2021-02-27 19:32] VITALS: BMI 24.4
[2021-02-27] MEDS: Sodium Chloride 0.9% 1,000 ML IV SCH (20:23)
[2021-02-27] MEDS: Atorvastatin Calcium 40 MG TAB PO SCH (20:46)
[2021-02-27] MEDS ORDERED: SALMETEROL IH SCH (21:00)
[2021-02-27] MEDS ORDERED: Pantoprazole 40 MG VIAL IVP SCH (21:00)
[2021-02-27] MEDS ORDERED: FLUTICASONE IH SCH (21:00)
[2021-02-27] MEDS ORDERED: [UNRECOGNIZED DRUG - OTHER] IH SCH (21:00)
[2021-02-27 21:41] LABS: Troponin I Less than 0.010 ng/mL (< 0.028)
[2021-02-27] MEDS: Albuterol Sulfate 2.5 mg/3 ml Neb NEB SCH (22:40)
[2021-02-27] MEDS: methylPREDNISolone Sod Succ 40 MG VIAL IVP SCH (23:37)
[2021-02-27] MEDS: Calcium Carbonate 500 MG ChewTAB PO PRN (23:38)
[2021-02-28] MEDS: Albuterol Sulfate 2.5 mg/3 ml Neb NEB SCH (00:17)
[2021-02-28] MEDS: Calcium Carbonate 500 MG ChewTAB PO PRN ×2 (02:19→09:34)
[2021-02-28 05:41] LABS: #Basophils 0.1 thou/uL (0.0-0.2); #Lymphocytes 0.6 thou/uL (1.20-3.40); #Monocytes 0.3 thou/uL (0.11-0.59); #Neutrophils 10.7 thou/uL (1.40-6.50); %Basophils 0.6 % (0.0-1.0); %Eosinophils 0.2 % (0.0-10.0); %Lymphocytes 4.8 % (21.0-51.0); %Monocytes 2.4 % (0.0-10.0); %Neutrophils 92.1 % (42.0-75.0); Hemoglobin 13.2 g/dL (12.0-16.0); Mean Corpuscular HGB CONC 33.3 g/dL (32.0-36.0); Mean Corpuscular Hemoglobin 32.5 pg (27.0-31.0); Mean Corpuscular Volume 97.5 fL (78.0-98.0); Mean Platelet Volume 8.2 fL (7.4-10.4); Platelet Count 195 thou/uL (130-400); RBC Distribution Width 12.8 % (11.5-14.5); Red Blood Cell (RBC) Count 4.07 mill/uL (4.20-5.40); White Blood Cell (WBC) Count 11.6 thou/uL (4.8-10.8)
[2021-02-28] MEDS: methylPREDNISolone Sod Succ 40 MG VIAL IVP SCH ×4 (05:57→23:36)
[2021-02-28 06:00] LABS: Anion Gap 11 mmol/L (10-20); BUN (Urea Nitrogen) 12 mg/dL (9.8-20.1); Calc. Creatinine Clearance 71 mL/min (70-130); Calcium 10.5 mg/dL (7.8-10.44); Carbon Dioxide 26 mmol/L (23-31); Chloride 104 mmol/L (98-107); Glucose 140 mg/dL (80-115); Potassium 4.5 mmol/L (3.5-5.1); Sodium 136 mmol/L (136-145)
[2021-02-28] MEDS: Arformoterol 15 MCG/2 ML NEB NEB SCH ×2 (07:32→20:33)
[2021-02-28] MEDS: Enoxaparin Sodium 40 MG/0.4 ML SYRINGE SC SCH (08:24)
[2021-02-28] MEDS: Aspirin 81 mg Enteric Coated Tablet PO SCH (08:24)
[2021-02-28] MEDS ORDERED: guaiFENesin 200 MG TAB PO PRN (10:38)
[2021-02-28] MEDS: Sodium Chloride 0.9% 1,000 ML IV SCH (10:54)
[2021-02-28] MEDS: Benzonatate 100 MG CAP PO PRN (12:59)
[2021-02-28] MEDS: Atorvastatin Calcium 40 MG TAB PO SCH (20:35)
[2021-03-01 05:31] LABS: #Basophils 0.2 thou/uL (0.0-0.2); #Lymphocytes 0.8 thou/uL (1.20-3.40); #Monocytes 1.1 thou/uL (0.11-0.59); #Neutrophils 14.5 thou/uL (1.40-6.50); %Basophils 0.9 % (0.0-1.0); %Eosinophils 0.3 % (0.0-10.0); %Lymphocytes 4.5 % (21.0-51.0); %Monocytes 6.4 % (0.0-10.0); %Neutrophils 87.9 % (42.0-75.0); Hemoglobin 12.4 g/dL (12.0-16.0); Mean Corpuscular HGB CONC 32.3 g/dL (32.0-36.0); Mean Corpuscular Hemoglobin 31.7 pg (27.0-31.0); Platelet Count 212 thou/uL (130-400); RBC Distribution Width 12.9 % (11.5-14.5); Red Blood Cell (RBC) Count 3.92 mill/uL (4.20-5.40); White Blood Cell (WBC) Count 16.5 thou/uL (4.8-10.8)
[2021-03-01 05:50] LABS: Anion Gap 8 mmol/L (10-20); BUN (Urea Nitrogen) 11 mg/dL (9.8-20.1); Calc. Creatinine Clearance 72 mL/min (70-130); Carbon Dioxide 29 mmol/L (23-31); Chloride 104 mmol/L (98-107); Glucose 166 mg/dL (80-115); Potassium 4.3 mmol/L (3.5-5.1); Sodium 137 mmol/L (136-145)
[2021-03-01] MEDS: methylPREDNISolone Sod Succ 40 MG VIAL IVP SCH ×3 (06:29→17:17)
[2021-03-01] MEDS: Aspirin 81 mg Enteric Coated Tablet PO SCH (09:05)
[2021-03-01] MEDS: Enoxaparin Sodium 40 MG/0.4 ML SYRINGE SC SCH (09:06)
[2021-03-01] MEDS: Arformoterol 15 MCG/2 ML NEB NEB SCH (11:56)
[2021-03-01] MEDS: Mometasone 200 MCG/Formoterol 5 MCG 120 PUFF INHALER INH SCH (18:40)
[2021-03-01] MEDS: Atorvastatin Calcium 40 MG TAB PO SCH (19:44)
[2021-03-02] MEDS: methylPREDNISolone Sod Succ 40 MG VIAL IVP SCH ×2 (00:11→06:12)
[2021-03-02] MEDS: Mometasone 200 MCG/Formoterol 5 MCG 120 PUFF INHALER INH SCH ×2 (07:13→19:12)
[2021-03-02] MEDS: Enoxaparin Sodium 40 MG/0.4 ML SYRINGE SC SCH (09:26)
[2021-03-02] MEDS: Aspirin 81 mg Enteric Coated Tablet PO SCH (09:26)
[2021-03-02] MEDS: Atorvastatin Calcium 40 MG TAB PO SCH (20:15)
[2021-03-03] MEDS: Mometasone 200 MCG/Formoterol 5 MCG 120 PUFF INHALER INH SCH ×2 (06:47→18:53)
[2021-03-03] MEDS: predniSONE 20 MG TAB PO SCH (08:01)
[2021-03-03] MEDS: Enoxaparin Sodium 40 MG/0.4 ML SYRINGE SC SCH (08:01)
[2021-03-03] MEDS: Aspirin 81 mg Enteric Coated Tablet PO SCH (08:01)
[2021-03-03] MEDS ORDERED: Communication Order-Pharmacy FS SCH (09:15)
[2021-03-03] MEDS ORDERED: Lisinopril 10 MG TAB PO SCH ×2 (09:30→21:00)
[2021-03-03] MEDS ORDERED: Lisinopril 5 MG TAB PO SCH (09:45)
[2021-03-03] MEDS: Atorvastatin Calcium 40 MG TAB PO SCH (20:17)
[2021-03-04 05:49] LABS: #Basophils 0.1 thou/uL (0.0-0.2); #Eosinphils 0.6 thou/uL (0.0-0.7); #Lymphocytes 1.8 thou/uL (1.20-3.40); #Monocytes 1.4 thou/uL (0.11-0.59); #Neutrophils 10.3 thou/uL (1.40-6.50); %Basophils 0.9 % (0.0-1.0); %Lymphocytes 12.9 % (21.0-51.0); %Monocytes 9.7 % (0.0-10.0); %Neutrophils 72.5 % (42.0-75.0); Hemoglobin 13.8 g/dL (12.0-16.0); Mean Corpuscular Hemoglobin 31.6 pg (27.0-31.0); Mean Corpuscular Volume 98.7 fL (78.0-98.0); Platelet Count 211 thou/uL (130-400); RBC Distribution Width 13.1 % (11.5-14.5); Red Blood Cell (RBC) Count 4.36 mill/uL (4.20-5.40); White Blood Cell (WBC) Count 14.1 thou/uL (4.8-10.8)
[2021-03-04] MEDS: predniSONE 20 MG TAB PO SCH (05:53)
[2021-03-04] MEDS: Aspirin 81 mg Enteric Coated Tablet PO SCH (05:54)
[2021-03-04] MEDS ORDERED: Sodium Chloride 0.9% 1,000 ML IV SCH ×2 (06:00→10:31)
[2021-03-04 06:01] LABS: Anion Gap 7 mmol/L (10-20); BUN (Urea Nitrogen) 9 mg/dL (9.8-20.1); Calc. Creatinine Clearance 75 mL/min (70-130); Calcium 9.4 mg/dL (7.8-10.44); Carbon Dioxide 31 mmol/L (23-31); Chloride 105 mmol/L (98-107); Glucose 90 mg/dL (80-115); Potassium 3.9 mmol/L (3.5-5.1); Sodium 139 mmol/L (136-145)
[2021-03-04 06:02] LABS: Magnesium 2.2 mg/dL (1.6-2.6)
[2021-03-04 06:05] LABS: Troponin I Less than 0.010 ng/mL (< 0.028)
[2021-03-04] MEDS: Mometasone 200 MCG/Formoterol 5 MCG 120 PUFF INHALER INH SCH (06:58)
[2021-03-04 08:15] LABS: Troponin I Less than 0.010 ng/mL (< 0.028)
[2021-03-04] MEDS ORDERED: Lidocaine 1% (PF) 30 ML VIAL ONE (08:45)
[2021-03-04] MEDS ORDERED: Heparin 10,000 UNITS/ 10 ML VIAL ONE (08:45)
[2021-03-04] MEDS ORDERED: Iopamidol 370 76% 100 ML VIAL ONE (08:49)
[2021-03-04] MEDS ORDERED: Midazolam HCl 2 mg/2 ml Vial ONE (09:30)
[2021-03-04] MEDS ORDERED: Fentanyl 100 MCG/2 ML VIAL ONE (09:30)
[2021-03-04] MEDS ORDERED: Protamine Sulfate 50 MG/5 ML VIAL ONE (10:03)
[2021-03-04] MEDS ORDERED: Acetaminophen/Codeine 30-300mg Tablet PO PRN ×2 (10:31)
[2021-03-04] MEDS ORDERED: Sodium Chloride 0.9% 200 ML IV PRN (10:31)
[2021-03-04] MEDS ORDERED: Nitroglycerin 0.4 MG TAB (25 Tab Bottle) SL PRN (10:31)
[2021-03-04 11:47] LABS: T4 7.6 ug/dL (4.87-11.72); Thyroid Stimulating Hormone 0.4787 uIU/mL (0.35-4.94)
[2021-03-04] MEDS: Benzonatate 100 MG CAP PO PRN (13:39)
[2021-03-04] MEDS ORDERED: Levalbuterol HCl 0.63 MG/3 ML NEB NEB SCH (15:00)
[2021-03-04 16:46] VITALS: BP 120/58
[2021-03-04 17:00] VITALS: TEMP 98.7
== END 2021-03-04 17:16 | disposition home or self-care (01) | DRG 189 ==
LOC: ERS 14:42 → 2SW 17:39 → OBSVTOIN 03-01 11:30
PROVIDERS: ADMIT Family Medicine; ATTEND Family Medicine
PROC: 4A023N7 Measurement of Cardiac Sampling and Pressure, Left Heart, Percutaneous Approach (ICD-10-PCS; principal; 2021-03-04)
PROC: B2131ZZ Fluoroscopy of Multiple Coronary Artery Bypass Grafts using Low Osmolar Contrast (ICD-10-PCS; 2021-03-04)
PROC: B2151ZZ Fluoroscopy of Left Heart using Low Osmolar Contrast (ICD-10-PCS; 2021-03-04)
DX: J96.21 Acute and chronic respiratory failure with hypoxia (principal); J44.1 Chronic obstructive pulmonary disease with (acute) exacerbation; I25.10 Atherosclerotic heart disease of native coronary artery without angina pectoris; I10 Essential (primary) hypertension; K21.9 Gastro-esophageal reflux disease without esophagitis; R07.89 Other chest pain; E78.5 Hyperlipidemia, unspecified; E83.52 Hypercalcemia; J40 Bronchitis, not specified as acute or chronic; R91.8 Other nonspecific abnormal finding of lung field; M54.30 Sciatica, unspecified side; E66.01 Morbid (severe) obesity due to excess calories; Z20.822 Contact with and (suspected) exposure to COVID-19; Z99.81 Dependence on supplemental oxygen; Z85.118 Personal history of other malignant neoplasm of bronchus and lung; Z95.1 Presence of aortocoronary bypass graft; Z90.2 Acquired absence of lung [part of]; Z79.82 Long term (current) use of aspirin; Z79.51 Long term (current) use of inhaled steroids; Z90.710 Acquired absence of both cervix and uterus; Z87.891 Personal history of nicotine dependence; Z68.24 Body mass index [BMI] 24.0-24.9, adult; Z82.49 Family history of ischemic heart disease and other diseases of the circulatory system
CPT/HCPCS: 0240U; 36415; 71045; 71275; 76942; 80048; 80053; 83690; 83735; 83880; 84436; 84443; 84484; 85025; 85347; 85379; 93005; 93010; 93306; 93459; 94640; 96365; 96372; 96374; 96375; 96376; 99152; 99153; G0378; J1644; J1650; J1956; J2001; J2250; J2720; J2920; J3010; J3475; J7512; J7620; Q9967

== ENCOUNTER 2021-09-13 09:55 | Outpatient (CLI) | payer MEDICARE, OTHER ==
[~2021-09-13 09:55] MED LIST changes: +Iopamidol 370 76% 100 ML VIAL ONE; -Iopamidol-370 76% 500 ML 1 ML ONE
== END 2021-09-13 09:56 | disposition home or self-care (01) ==
LOC: CT 09:55
PROVIDERS: ATTEND Radiology Radiation Oncology
DX: C34.11 Malignant neoplasm of upper lobe, right bronchus or lung (principal); C34.12 Malignant neoplasm of upper lobe, left bronchus or lung
CPT/HCPCS: 71260

== ENCOUNTER 2022-03-02 10:09 | Outpatient (CLI) | payer MEDICARE, OTHER ==
[2022-03-02] MEDS ORDERED: Iopamidol 370 76% 100 ML VIAL ONE (14:08)
== END 2022-03-02 10:10 | disposition home or self-care (01) ==
LOC: CT 10:09
PROVIDERS: ATTEND Radiology Radiation Oncology
DX: C34.90 Malignant neoplasm of unspecified part of unspecified bronchus or lung (principal); Z92.3 Personal history of irradiation
CPT/HCPCS: 71260; 82565; Q9967

== ENCOUNTER 2022-04-06 10:13 | Outpatient (CLI) | payer MEDICARE, OTHER | END 2022-04-06 10:14 | disposition home or self-care (01) | LOC: RAD 10:13 | PROVIDERS: ATTEND Internal Medicine Critical Care Medicine | DX: R06.00 Dyspnea, unspecified (principal) | CPT/HCPCS: 71046 ==

== ENCOUNTER 2022-07-17 19:59 | Inpatient (IN) | payer MEDICARE, OTHER ==
[2022-07-17 20:37] LABS: #Basophils 0.4 thou/uL (0.0-0.2); #Eosinphils 0.3 thou/uL (0.0-0.7); #Lymphocytes 1.2 thou/uL (1.20-3.40); #Monocytes 1.1 thou/uL (0.11-0.59); #Neutrophils 11.7 thou/uL (1.40-6.50); %Basophils 2.8 % (0.0-1.0); %Lymphocytes 8.4 % (21.0-51.0); %Monocytes 7.7 % (0.0-10.0); %Neutrophils 79.2 % (42.0-75.0); Mean Corpuscular HGB CONC 34.5 g/dL (32.0-36.0); Mean Corpuscular Hemoglobin 33.3 pg (27.0-31.0); Mean Corpuscular Volume 96.6 fl (78.0-98.0); Platelet Count 220 10x3/uL (130-400); RBC Distribution Width 13.1 % (11.5-14.5); Red Blood Cell (RBC) Count 4.21 mill/uL (4.20-5.40); White Blood Cell (WBC) Count 14.8 10x3/uL (4.8-10.8)
[2022-07-17 20:58] LABS: ALT (SGPT) 11 U/L (8-55); AST (SGOT) 17 U/L (5-34); Albumin 4.6 g/dL (3.4-4.8); Alkaline Phosphatase 197 U/L (40-110); Anion Gap 13 mmol/L (10-20); BUN (Urea Nitrogen) 17 mg/dL (9.8-20.1); Bilirubin, Total 0.5 mg/dL (0.2-1.2); Calc. Creatinine Clearance 0 mL/min (70-130); Calcium 10.5 mg/dL (7.8-10.44); Carbon Dioxide 26 mmol/L (23-31); Chloride 103 mmol/L (98-107); Estimated GFR 65; Globulin 2.4 g/dL (2.4-3.5); Glucose 134 mg/dL (80-115); Potassium 4.4 mmol/L (3.5-5.1); Sodium 138 mmol/L (136-145)
[2022-07-17] MEDS ORDERED: predniSONE 20 MG TAB ONE (21:43)
[2022-07-17] MEDS ORDERED: Acetaminophen 325 MG TAB PO PRN (22:57)
[2022-07-17] MEDS ORDERED: Nitroglycerin 0.4 MG TAB (25 Tab Bottle) SL PRN (22:57)
[2022-07-17] MEDS ORDERED: Ondansetron ODT 4 MG TAB PO PRN (22:57)
[2022-07-17] MEDS ORDERED: Ondansetron PF 4 MG/2 ML Vial IVP PRN (22:57)
[2022-07-17] MEDS ORDERED: guaiFENesin ER 600 MG TAB PO SCH (23:30)
[2022-07-17] MEDS ORDERED: Aspirin 325 MG TAB PO SCH (23:30)
[2022-07-17] MEDS ORDERED: Sodium Chloride 0.9% 1,000 ML IV SCH (23:59)
[2022-07-18] MEDS ORDERED: Aspirin 325 MG TAB ONE (00:01)
[2022-07-18 01:41] LABS: Troponin I Less than 0.010 ng/mL (< 0.028)
[2022-07-18 04:37] LABS: #Lymphocytes 0.8 thou/uL (1.20-3.40); #Monocytes 0.1 thou/uL (0.11-0.59); #Neutrophils 12.1 thou/uL (1.40-6.50); %Basophils 0.4 % (0.0-1.0); %Eosinophils 0.2 % (0.0-10.0); %Lymphocytes 6.1 % (21.0-51.0); %Monocytes 0.9 % (0.0-10.0); %Neutrophils 92.4 % (42.0-75.0); Hemoglobin 13.1 g/dL (12.0-16.0); Mean Corpuscular HGB CONC 32.5 g/dL (32.0-36.0); Mean Corpuscular Hemoglobin 31.9 pg (27.0-31.0); Mean Corpuscular Volume 98.1 fl (78.0-98.0); Mean Platelet Volume 8.6 fL (7.4-10.4); Platelet Count 199 10x3/uL (130-400); Red Blood Cell (RBC) Count 4.11 mill/uL (4.20-5.40); White Blood Cell (WBC) Count 13.1 10x3/uL (4.8-10.8)
[2022-07-18 05:26] LABS: Anion Gap 11 mmol/L (10-20); BUN (Urea Nitrogen) 15 mg/dL (9.8-20.1); Calc. Creatinine Clearance 0 mL/min (70-130); Calcium 10.2 mg/dL (7.8-10.44); Carbon Dioxide 23 mmol/L (23-31); Chloride 103 mmol/L (98-107); Estimated GFR 84; Glucose 150 mg/dL (80-115); Potassium 4.8 mmol/L (3.5-5.1); Sodium 132 mmol/L (136-145)
[2022-07-18 05:29] LABS: Troponin I Less than 0.010 ng/mL (< 0.028)
[2022-07-18] MEDS ORDERED: Aspirin Chewable 81 MG TAB ONE (08:48)
[2022-07-18] MEDS ORDERED: Aspirin Chewable 81 MG TAB PO SCH (09:00)
[2022-07-18] MEDS: guaiFENesin ER 600 MG TAB PO SCH ×2 (09:03→22:08)
[2022-07-18] MEDS ORDERED: Benzonatate 100 MG CAP PO PRN (10:46)
[2022-07-18 11:07] LABS: Magnesium 1.9 mg/dL (1.6-2.6)
[2022-07-18 13:44] LABS: SARS-CoV-2 NAA Rapid Test Not Detected (NotDetected)
[2022-07-18 14:33] VITALS: BMI 26.6
[2022-07-18] MEDS ORDERED: FLU VACC QS2022-23(65YR UP)/PF 240 MCG/0.7 ML SYRINGE IM ONE (14:45)
[2022-07-18] MEDS: Ipratropium Bromide 2.5 ml Neb NEB SCH ×2 (14:48→19:12)
[2022-07-18] MEDS ORDERED: Lisinopril 10 MG TAB PO SCH (21:00)
[2022-07-18] MEDS ORDERED: Atorvastatin Calcium 40 MG TAB PO SCH ×2 (21:00)
[2022-07-19 05:42] LABS: Hemoglobin 12.2 g/dL (12.0-16.0); Mean Corpuscular HGB CONC 31.8 g/dL (32.0-36.0); Mean Corpuscular Hemoglobin 31.1 pg (27.0-31.0); Mean Corpuscular Volume 97.6 fl (78.0-98.0); Mean Platelet Volume 8.2 fL (7.4-10.4); Platelet Count 216 10x3/uL (130-400); RBC Distribution Width 13.1 % (11.5-14.5); Red Blood Cell (RBC) Count 3.93 mill/uL (4.20-5.40); White Blood Cell (WBC) Count 11.4 10x3/uL (4.8-10.8)
[2022-07-19 05:54] LABS: Anion Gap 8 mmol/L (10-20); BUN (Urea Nitrogen) 10 mg/dL (9.8-20.1); Calc. Creatinine Clearance 84 mL/min (70-130); Calcium 9.8 mg/dL (7.8-10.44); Carbon Dioxide 29 mmol/L (23-31); Chloride 102 mmol/L (98-107); Estimated GFR 95; Glucose 101 mg/dL (80-115); Potassium 3.9 mmol/L (3.5-5.1); Sodium 135 mmol/L (136-145)
[2022-07-19 06:42] LABS: Band 8 % (5-11); Lymphocytes 15 % (21-51); MDiff Complete? YES; Monocytes 9 % (0-10); Neutrophil 68 % (42-75)
[2022-07-19] MEDS: Ipratropium Bromide 2.5 ml Neb NEB SCH (07:02)
[2022-07-19 08:20] VITALS: BP 102/59; TEMP 97.4
[2022-07-19] MEDS: guaiFENesin ER 600 MG TAB PO SCH (08:41)
[2022-07-19] MEDS ORDERED: Nebivolol HCl 2.5 MG TAB PO SCH (09:00)
[2022-07-19] MEDS ORDERED: Aspirin 81 mg Enteric Coated Tablet PO SCH (09:00)
== END 2022-07-19 10:50 | disposition home or self-care (01) | DRG 191 ==
LOC: ERS 19:59 → ERHOLD 21:56 → 2SW 07-18 13:15 → OBSVTOIN 07-18 15:40
PROVIDERS: ADMIT Hospitalist; ATTEND Hospitalist
DX: J44.1 Chronic obstructive pulmonary disease with (acute) exacerbation (principal); J96.11 Chronic respiratory failure with hypoxia; Z20.822 Contact with and (suspected) exposure to COVID-19; I25.10 Atherosclerotic heart disease of native coronary artery without angina pectoris; E78.00 Pure hypercholesterolemia, unspecified; R07.89 Other chest pain; K21.9 Gastro-esophageal reflux disease without esophagitis; J44.9 Chronic obstructive pulmonary disease, unspecified; Z85.118 Personal history of other malignant neoplasm of bronchus and lung; Z95.1 Presence of aortocoronary bypass graft; Z90.2 Acquired absence of lung [part of]; Z91.030 Bee allergy status; Z79.899 Other long term (current) drug therapy; Z79.82 Long term (current) use of aspirin; Z79.52 Long term (current) use of systemic steroids; Z90.710 Acquired absence of both cervix and uterus; Z87.891 Personal history of nicotine dependence; Z99.81 Dependence on supplemental oxygen
CPT/HCPCS: 36415; 71045; 80048; 80053; 83735; 84439; 84443; 84481; 84484; 85025; 93005; 94640; G0378; J7050; J7512; U0002

== ENCOUNTER 2022-09-15 09:12 | Outpatient (CLI) | payer MEDICARE, OTHER | END 2022-09-15 09:13 | disposition home or self-care (01) | LOC: BICCT 09:12 | PROVIDERS: ATTEND Radiology Radiation Oncology | DX: C34.90 Malignant neoplasm of unspecified part of unspecified bronchus or lung (principal); R91.8 Other nonspecific abnormal finding of lung field; I25.10 Atherosclerotic heart disease of native coronary artery without angina pectoris; J98.11 Atelectasis; Z92.3 Personal history of irradiation | CPT/HCPCS: 71260; 82565 ==

== ENCOUNTER 2022-09-28 10:15 | Outpatient (CLI) | payer MEDICARE, OTHER | END 2022-09-28 10:16 | disposition home or self-care (01) | LOC: PET 10:15 | PROVIDERS: ATTEND Internal Medicine Hematology & Oncology | DX: C34.81 Malignant neoplasm of overlapping sites of right bronchus and lung (principal); R22.9 Localized swelling, mass and lump, unspecified | CPT/HCPCS: 78815; A9552 ==

== ENCOUNTER 2022-11-25 07:56 | Day surgery (SDC) | payer MEDICARE, OTHER ==
[2022-11-23 14:26] VITALS: BMI 24.1
[2022-11-25] MEDS ORDERED: Lidocaine 1% (PF) 30 ML VIAL ONE (08:54)
[2022-11-25] MEDS ORDERED: Midazolam HCl 2 mg/2 ml Vial ONE (09:43)
[2022-11-25] MEDS ORDERED: Ketamine 50 MG/ML (10ML VIAL) ONE (09:43)
[2022-11-25] MEDS ORDERED: CEFAZOLIN 2 GM VIAL ONE (10:38)
[2022-11-25] MEDS ORDERED: Sodium Chloride 0.9% 100 ML ONE (10:38)
[2022-11-25] MEDS ORDERED: Ondansetron PF 4 MG/2 ML Vial ONE (10:46)
[2022-11-25] MEDS ORDERED: PROPOFOL 200 MG/20 ML VIAL ONE (10:46)
[2022-11-25] MEDS ORDERED: Lidocaine 1% PF 5 ML VIAL ONE (10:46)
[2022-11-25] MEDS ORDERED: fentaNYL 50 mcg/mL 1 mL Vial ONE (11:46)
[2022-11-25] MEDS ORDERED: HYDROcodone/Acetaminophen 5/325 mg Tablet ONE (12:30)
== END 2022-11-25 13:08 | disposition home or self-care (01) ==
LOC: SDC 07:56
PROVIDERS: ATTEND Thoracic Surgery (Cardiothoracic Vascular Surgery)
PROC: 0JH60WZ Insertion of Totally Implantable Vascular Access Device into Chest Subcutaneous Tissue and Fascia, Open Approach (ICD-10-PCS; principal; 2022-11-25)
DX: C34.11 Malignant neoplasm of upper lobe, right bronchus or lung (principal); I25.10 Atherosclerotic heart disease of native coronary artery without angina pectoris; J44.9 Chronic obstructive pulmonary disease, unspecified; Z87.891 Personal history of nicotine dependence; Z79.82 Long term (current) use of aspirin; Z79.899 Other long term (current) drug therapy; Z91.030 Bee allergy status; Z95.1 Presence of aortocoronary bypass graft; Z90.2 Acquired absence of lung [part of]
CPT/HCPCS: 36561; 71045; C1788; J3010; J1642; J2001; J2250; J2405; J2704; J3490

== ENCOUNTER → 2022-12-08 | Outpatient (CLI) | payer MEDICARE, OTHER | LOC: PET 11:00 | PROVIDERS: ATTEND Internal Medicine Hematology & Oncology | DX: C34.81 Malignant neoplasm of overlapping sites of right bronchus and lung (principal); R91.1 Solitary pulmonary nodule; J98.4 Other disorders of lung | CPT/HCPCS: 78815; A9552 ==

== ENCOUNTER 2023-05-30 12:21 | Outpatient (CLI) | payer MEDICARE, OTHER | END 2023-05-30 12:22 | disposition home or self-care (01) | LOC: RAD 12:21 | PROVIDERS: ATTEND Internal Medicine Critical Care Medicine | DX: R06.00 Dyspnea, unspecified (principal); R91.8 Other nonspecific abnormal finding of lung field | CPT/HCPCS: 71046 ==

== ENCOUNTER 2023-06-02 09:30 | Outpatient (CLI) | payer MEDICARE, OTHER | END 2023-06-02 09:31 | disposition home or self-care (01) | LOC: PET 09:30 | PROVIDERS: ATTEND Internal Medicine Hematology & Oncology | DX: C34.81 Malignant neoplasm of overlapping sites of right bronchus and lung (principal); R91.8 Other nonspecific abnormal finding of lung field | CPT/HCPCS: 78815; A9552 ==

== ENCOUNTER 2023-08-24 07:39 | Outpatient (CLI) | payer MEDICARE, OTHER | END 2023-08-24 07:40 | disposition home or self-care (01) | LOC: CT 07:39 | PROVIDERS: ATTEND Internal Medicine Hematology & Oncology | DX: C34.91 Malignant neoplasm of unspecified part of right bronchus or lung (principal); D51.8 Other vitamin B12 deficiency anemias; R91.8 Other nonspecific abnormal finding of lung field | CPT/HCPCS: 71260; 82565 ==

== ENCOUNTER 2024-08-15 09:52 | Outpatient (CLI) | payer MEDICARE, OTHER ==
[2024-08-15] MEDS ORDERED: Iopamidol 370 76% 100 ML VIAL ONE (14:52)
== END 2024-08-15 09:53 | disposition home or self-care (01) ==
LOC: BICCT 09:52
PROVIDERS: ATTEND Internal Medicine Hematology & Oncology
DX: C34.81 Malignant neoplasm of overlapping sites of right bronchus and lung (principal); R91.8 Other nonspecific abnormal finding of lung field
CPT/HCPCS: 71260; 80053; 84436; 84443; Q9967

== ENCOUNTER 2024-09-06 11:00 | Outpatient (CLI) | payer MEDICARE, OTHER | END 2024-09-06 11:01 | disposition home or self-care (01) | LOC: PET 11:00 | PROVIDERS: ATTEND Internal Medicine Hematology & Oncology | DX: C34.81 Malignant neoplasm of overlapping sites of right bronchus and lung (principal); R91.8 Other nonspecific abnormal finding of lung field | CPT/HCPCS: 78815; A9552 ==

== ENCOUNTER 2025-06-11 09:03 | Outpatient (CLI) | payer MEDICARE, OTHER ==
[2025-06-11 09:47] LABS: Estimated GFR - POC 91.0
[2025-06-11] MEDS ORDERED: Iopamidol 370 76% 100 ML VIAL ONE (10:37)
== END 2025-06-11 09:04 | disposition home or self-care (01) ==
LOC: CT 09:03
PROVIDERS: ATTEND Internal Medicine Hematology & Oncology
DX: C34.81 Malignant neoplasm of overlapping sites of right bronchus and lung (principal)
CPT/HCPCS: 36415; 71260; 82565; Q9967